=== PATIENT | female | born 1935 | race Caucasian/White ===

== ENCOUNTER → 2017-04-14 | Outpatient (CLI) | payer OTHER, BC | LOC: BMCIMAGING 14:43 | PROVIDERS: ATTEND Internal Medicine Rheumatology | DX: Z12.31 Encounter for screening mammogram for malignant neoplasm of breast (principal); Z13.820 Encounter for screening for osteoporosis; M85.89 Other specified disorders of bone density and structure, multiple sites; Z80.3 Family history of malignant neoplasm of breast ==

== ENCOUNTER 2018-04-17 08:08 | Emergency (ER) | payer OTHER, BC | END 2018-04-17 10:10 | disposition home or self-care (01) ==

== ENCOUNTER → 2018-06-02 | Outpatient (CLI) | payer OTHER, BC | LOC: BMCIMAGING 12:17 | PROVIDERS: ATTEND Internal Medicine | DX: Z12.31 Encounter for screening mammogram for malignant neoplasm of breast (principal); Z80.3 Family history of malignant neoplasm of breast ==